=== PATIENT | female | born 1965 | race Caucasian/White ===

== ENCOUNTER → 2021-01-07 09:13 | Outpatient (CLI) | payer BC, SELFPAY ==
--- NOTE | ~2021-01-07 | US_ITS ---
US abdomen complete EXAMINATION: US Abdomen Complete INDICATION: Generalized abdominal pain PROCEDURE: Realtime High Resolution abdomen ultrasound. COMPARISON: No prior studies for comparison FINDINGS: Gallbladder within normal limits. No gallstones, pericholecystic fluid, gallbladder wall t hickening or biliary dilatation. Common bile duct measures 3.6 mm. There is fatty infiltration of the liver cyst. There are multiple liver cysts, largest measuring 2.4 cm. Pancreas within normal limits. Pancreatic tail is obscured by bowel gas. Spleen is enlarged ursula suring 13.9 cm. Renal echotexture is within normal limits bilaterally without hydronephrosis, contour deforming mass or renal stone. Right kidney measures 11.4 cm. Left kidney measures 10.7 cm. Visualized aspects of the aorta is within normal limits. The IVC is not visualized. Portal vein is pa tent. No sonographic Patel's sign indicated by the technologist. IMPRESSION: 1: Fatty infiltration of the liver with multiple liver cysts, largest measuring 2.4 cm. 2: Splenomegaly. Reviewed, dictated and finalized at location B. K AND WATCH HANDS DIPPER
== END ==
PROVIDERS: PCP Family Medicine; Visit Provider Nurse Practitioner Family
DX: R10.9 Unspecified abdominal pain (principal); K76.0 Fatty (change of) liver, not elsewhere classified; R16.1 Splenomegaly, not elsewhere classified
CPT/HCPCS: 76700

== ENCOUNTER → 2021-01-21 13:29 | Outpatient (CLI) | payer BC, SELFPAY ==
--- NOTE | ~2021-01-21 | MM_ITS ---
EXAMINATION: MM screening usha BI w chapo HISTORY: Screening mammogram TECHNIQUE: Craniocaudal and mediolateral oblique 3-D tomosynthesis images were obtained and synthetic 2-D images were generated. CAD analysis was submitted and interpreted. COMPARISON: 11/07/2017, 02/13/2015 bilateral digital screening mammogram examinations BREAST PARENCHYMAL COMPOSITION: There are scattered areas of fibroglandular density. FINDINGS: There is no evidence of suspicious mass, calcification, or architectural distortion to sugg est malignancy in either breast. There has been no suspicious interval change. IMPRESSION: 1. No mammographic evidence of malignancy. 2. Recommend routine screening mammography in one year. BI-RADS Category 1: Negative Reviewed, dictated and finalized at location A. ER AND POLISHER
--- NOTE | ~2021-01-21 | DEXA_ITS ---
Bone Density Report Name: Viktoriya Crane Age: 55 Sex: Female Ethnicity: White Date of : 1965 Indication: postmenopausal; screening for osteoporosis; hysterectomy; Referring Provider: BENSON LIGHT Study: Bone densitometry was performed. Exam Date: January 21, 2021 Accession number: [id number] Bone Density: Region BMD T-score Z-score Classification AP Spine (L3, L4) 1.269 1.5 2.8 Normal Femoral Neck (Left) 0.809 -0.4 0.8 Normal Total Hip (Left) 1.103 1.3 2.1 Normal Femoral Neck (Right) 0.845 0.0 1.1 Normal Total Hip (Right) 1.074 1.1 1.8 Normal Total Hip Mean 1.089 1.2 2.0 Normal World Health Organization criteria for BMD impression classify patients as: Normal (T-score at or above -1.0), Osteopenia (T-score between -1.0 and -2.5), or Osteoporosis (T-score at or below -2.5). 10-year Fracture Risk: FRAX not reported because: All T-scores for Spine Total, Hip Total, Femoral Neck at or above -1.0 Previous Exams: Region Exam Age BMD T-score BMD Change BMD Change Date g/cm2 vs Baseline vs Previous AP Spine(L3, L4) 01/21/2021 55 1.269 1.5 0.071* 0.071* 10/31/2018 53 1.198 0.9 Total Hip(Left) 01/21/2021 55 1.103 1.3 0.047* 0.047* 10/31/2018 53 1.056 0.9 Total Hip(Right) 01/21/2021 55 1.074 1.1 -0.011 -0.011 10/31/2018 53 1.085 1.2 *Denotes significance at 95% confidence level, LSC for AP Spine = 0.022 g/cm2, LSC for Total Hip = 0.027 g/cm2 Clinical Information Provided by Patient: Has used the following medications: Vitamin D Has the following medical conditions: Hysterectomy Patient maximum height was 65.5 Menopause Age: 49 No regular weight bearing exercise Drinks caffeinated beverages Onset of menses at age 8 Number of children 3 Missed period for more than 6 months in a row Impression: The patient has normal bone mass. No significant bone loss was observed. Discussion: BONE DENSITY IS ABOVE THE MINIMUM DESIRABLE LEVEL AT ALL SKELETAL SITES TESTED. This patient?s bone mineral density is above the minimum desirable level (T-score -1.0 or better) at all sites measured. The patient should follow a healthful lifestyle (good nutrition with adequate calcium and vitamin D, and appropriate weight-bearing exercise). Follow-Up: Consider repeating this study in 5 years or sooner if there is some new clinical indication. Reported by: [facility] on 01/21/2021
== END ==
PROVIDERS: PCP Family Medicine; Visit Provider Obstetrics & Gynecology
DX: Z12.31 Encounter for screening mammogram for malignant neoplasm of breast (principal); Z13.820 Encounter for screening for osteoporosis; Z78.0 Asymptomatic menopausal state
CPT/HCPCS: 77063; 77067; 77080

== ENCOUNTER 2021-01-29 08:48 | Outpatient (CLI) | payer BC, SELFPAY | END 2021-01-29 08:49 | disposition home or self-care (01) | LOC: ANHCOVIDVC 08:48 | PROVIDERS: PCP Family Medicine | DX: Z23 Encounter for immunization (principal) | CPT/HCPCS: 0001A; 91300 ==

== ENCOUNTER → 2021-02-04 07:49 | Outpatient (CLI) | payer OTHER, SELFPAY ==
--- NOTE | ~2021-02-04 | US_ITS ---
EXAMINATION: US abdomen complete EXAM DATE: 02/04/2021 08:19 INDICATION: Splenomegaly. TECHNIQUE: Multiple grayscale and Doppler images of the complete abdomen were obtained (by a technolo gist who performed the scan) and subsequently reviewed. Comparison is made to prior examination from 01/07/2021. FINDINGS: The abdominal aorta is normal in caliber. Visualized portion IVC is patent. The pancreatic head a nd body are normal in appearance. The pancreatic tail is not visualized. There is echogenic liver parenchyma, hepatic steatosis. Several anechoic structures consistent with liver cysts identified measuring up to 3.4 cm There is no evidence of intrahepatic biliary duct dila tion. Portal venous flow was seen in the hepatopedal, normal direction and has normal Doppler wavefo rm. Common bile duct measures 3 mm, which is normal. The gallbladder wall is normal in thickness, with ex pected amount of distention. No sonographic evidence of pericholecystic fluid. There is no cholelit hiases. Technologist performing exam reports patient did not demonstrate sonographic Patel's sign. Please note that this sign is less reliable in patients who have received pain medication. Right kidney: There is normal contour and echogenicity. It measures 10.4 x 4.3 x 4.8 centimeters. There are no focal renal lesions identified. There is no hydronephrosis. Left kidney: There is normal contour and echogenicity. It measures 12.2 x 5.3 x 5.4 centimeters. T here are no focal renal lesions identified. There is no hydronephrosis. The spleen measures 14.6 centimeters, mildly enlarged in greatest dimension. Thickness appears within normal limits. Maximal dimension obtained on prior study was 13.9 cm. IMPRESSION: 1. Borderline splenomegaly. 2. Hepatic steatosis. Reviewed, dictated and finalized at location B. STYLE CONSULTANT
== END ==
PROVIDERS: PCP Nurse Practitioner Family; Visit Provider Nurse Practitioner Family
DX: R16.1 Splenomegaly, not elsewhere classified (principal); K76.0 Fatty (change of) liver, not elsewhere classified
CPT/HCPCS: 76700

== ENCOUNTER 2021-02-19 08:47 | Outpatient (CLI) | payer OTHER, BC, SELFPAY | END 2021-02-19 08:48 | disposition home or self-care (01) | LOC: ANHCOVIDVC 08:48 | PROVIDERS: PCP Nurse Practitioner Family | DX: Z23 Encounter for immunization (principal) | CPT/HCPCS: 0002A; 91300 ==

== ENCOUNTER → 2021-05-15 08:55 | Outpatient (CLI) | payer OTHER, SELFPAY ==
--- NOTE | ~2021-05-15 | US_ITS ---
US abdomen complete DATE: 05/15/2021 09:40 INDICATION: Splenomegaly TECHNIQUE: Real-time imaging and Doppler analysis of the abdomen COMPARISON: 02/04/2021 complete abdominal ultrasound examination FINDINGS: Hepatic steatosis. Multiple hepatic cysts. Normal hepatopedal portal venous flow direction The pancreatic tail is obscured. The pancreas otherwise appears unremarkable. No gallstones, gallbladder wall thickening or abnormal pericholecystic fluid collection. Negative son ographic Patel's sign. Common bile duct measures 3 mm, normal. Right kidney measures 11.4 cm length, left kidney 11.7 cm. No renal mass lesion or hydronephrosis. The measures approximately 15 cm length. Normal caliber of the abdominal aorta. The inferior vena cava is unremarkable. IMPRESSION: Hepatic steatosis Hepatic cysts Splenomegaly Reviewed, dictated and finalized at Location A. Reviewed, dictated and finalized at location A.
== END ==
PROVIDERS: PCP Family Medicine; Visit Provider Nurse Practitioner Family
DX: R16.1 Splenomegaly, not elsewhere classified (principal); K76.0 Fatty (change of) liver, not elsewhere classified; K76.89 Other specified diseases of liver
CPT/HCPCS: 76700

== ENCOUNTER → 2023-01-19 14:43 | Outpatient (CLI) | payer BC, SELFPAY ==
--- NOTE | ~2023-01-19 | MM_ITS ---
EXAMINATION: MM screening usha BI w chapo HISTORY: Screening mammogram TECHNIQUE: Craniocaudal and mediolateral oblique 3-D tomosynthesis images were obtained and synthetic 2-D images were generated. CAD analysis was submitted and interpreted. COMPARISON: January 21, 2021, November 07, 2017, February 13, 2015 bilateral screening mammogram examin ations BREAST PARENCHYMAL COMPOSITION: There are scattered areas of fibroglandular density. FINDINGS: There is no evidence of suspicious mass, calcification, or architectural distortion to sugg est malignancy in either breast. There has been no suspicious interval change. IMPRESSION: 1. No mammographic evidence of malignancy. 2. Recommend routine screening mammography in one year. BI-RADS Category 1: Negative Reviewed, dictated and finalized at location A. ONAL CARER
== END ==
PROVIDERS: PCP Family Medicine; Visit Provider Obstetrics & Gynecology
DX: Z12.31 Encounter for screening mammogram for malignant neoplasm of breast (principal)
CPT/HCPCS: 77063; 77067

== ENCOUNTER 2024-10-16 13:14 | Outpatient (CLI) | payer BC, SELFPAY ==
--- NOTE | ~2024-10-16 | XR_ITS ---
XR elbow LT 2V Ordering provider: Radha Jack APRN History: . M25.512 - Pain in left shoulder . Comparison: None. FINDINGS: BONES: No acute fracture or dislocation. JOINT SPACES: Normal. SOFT TISSUES: Normal. No definite joint effusion. IMPRESSION: No acute osseous abnormality left elbow. Reviewed, dictated and finalized at location A. ILE PROC TECH
--- NOTE | ~2024-10-16 | XR_ITS ---
XR shoulder LT min 2V Ordering provider: Radha Jack APRN History: . M25.512 - Pain in left shoulder . Comparison: None. FINDINGS: BONES: No acute fracture or dislocation. JOINT SPACES: The acromioclavicular joint is normal. The glenohumeral joint is normal. SOFT TISSUES: Normal. IMPRESSION: No acute osseous abnormality left shoulder. Reviewed, dictated and finalized at location A. RVISOR DRY CLEANING
== END 2024-10-16 13:15 | disposition home or self-care (01) ==
LOC: MICIMG 13:16
PROVIDERS: PCP Family Medicine; Visit Provider Nurse Practitioner Adult Health
DX: M25.512 Pain in left shoulder (principal); M25.522 Pain in left elbow
CPT/HCPCS: 73030; 73070

== ENCOUNTER 2024-11-24 09:29 | Outpatient (CLI) | payer BC, SELFPAY ==
--- NOTE | ~2024-11-24 | MR_ITS ---
MRI of the left shoulder Technique: Axial proton-density fat-sat images, coronal proton density fat-sat and T2 fat-sat images, and sagittal T1-weighted and T2 fat-sat images were acquired. Clinical History: Injury Findings: There is mild AC joint degenerative change. Coracoclavicular, coracoacromial, and coracohum eral ligaments are intact. Supraspinatus and infraspinatus tendons are intact, with minimal tendinosis. No partial or full-thick ness tear. Subscapularis tendon is intact with mild to moderate tendinosis. Tendon of long head of th e biceps is intact. There is probable anteroinferior labral tear and possible focal osseous Bankart lesion. Inferior glenohumeral ligament is intact. There is moderate glenohumeral joint effusion. There is min imal fluid in the subacromial/subdeltoid bursa. No muscle atrophy or edema. Impression: Probable anteroinferior labral tear and suspected focal osseous Bankart lesion, consistent with seque la of prior anteroinferior shoulder dislocation. Consider CT to better evaluate bony morphology of th e anterior inferior glenoid. Moderate glenohumeral joint effusion. Reviewed, dictated and finalized at [facility]. HT LOSS CONSULTANT Impression: Probable anteroinferior labral tear and suspected focal osseous Bankart lesion, consistent with sequela of prior anteroinferior shoulder dislocation. Consider CT to better evaluate bony morphology of the anterior inferior glenoid. Moderate glenohumeral joint effusion.
== END 2024-11-24 09:30 | disposition home or self-care (01) ==
PROVIDERS: PCP Family Medicine; Visit Provider Nurse Practitioner Adult Health
DX: M25.412 Effusion, left shoulder (principal)
CPT/HCPCS: 73221

== ENCOUNTER 2025-03-26 10:14 | Outpatient (CLI) | payer OTHER, SELFPAY ==
--- NOTE | ~2025-03-26 | XR_ITS ---
3 VIEWS LUMBAR SPINE Ordering provider: Radha Jack APRN History: . M54.10 - Radiculopathy, site unspecified . Comparison: None. FINDINGS: VERTEBRAL BODIES: No visible fracture or subluxation. Degenerative changes of the spine. DISK SPACES: Narrowing of the disc L1-L2 and L5-S1. Facet joint disease at the level of L4-L5 and L5- S1. SOFT TISSUES: Loss of lordosis which may indicate muscle spasm. Otherwise, Normal. IMPRESSION: No acute osseous abnormality lumbar spine. Multilevel degenerative disc disease. Reviewed, dictated and finalized at location A.
--- OUTSIDE RECORDS SUMMARY | 2025-03-26 11:25 | XMS_ITS | Referral Summary ---
Author Organization [facility] Address [address] [place] [address] Care Team Providers Care Pediatric Immunologist Name Role Phone Harris Appiah MD Primary Care Provider [phone] Kingsley Thomas MD Unavailable [phone] Dragan Payne MD Unavailable [phone] Encounters Date Type Department Care Team Description 01/08/2025 8:00 AM KENNEL WORKER Office Visit [facility] Orthopedics and Sports Medicine [facility] [address] [place] [phone] Dillon Pineda MD Chronic left shoulder pain (Primary Dx) 12/26/2024 Telephone [facility] [address] [facility] 12[address] [place] [address] [place] [address] Eve Hall RN from Last 3 Months Allergies No known active allergies Medications sertraline (ZOLOFT) 100 mg tablet Take 2 tablets (200 mg total) by mouth daily 1 06/29/20 19 Active atorvastatin (LIPITOR) 40 mg tabletIndications :hyperlipidemia Take 1 tablet (40 mg total) by mouth nightly Active cholecalciferol (VITAMIN D-3) 5,000 unit tabletIndications :Vitamin D Deficiency Take 1 tablet (5,000 Units total) by mouth every morning Active MULTIVITAMIN ORAL Take 1 tablet/chew tab by mouth every morning Active pseudoephedrine (SUDAFED) 30 mg tabletIndications :Nasal Congestion Take 1 tablet (30 mg total) by mouth every 4 (four) hours as needed for congestion Active ibuprofen (ADVIL,MOTRIN) 600 mg tabletIndications :Pain Take 1 tablet (600 mg total) by mouth every 6 (six) hours 45 tablet 1 08/23/20 19 Active metFORMIN (GLUCOPHAGE) 500 mg tablet Take 1 tablet (500 mg total) by mouth 2 (two) times a day with meals Active vitamin B complex/folic acid (B COMPLEX 100 ORAL) Take by mouth Active guaifenesin/pseud oephedrne HCl (MUCINEX D ORAL) Take by mouth Active flaxseed oiL oil 720 mg daily Pt takes 4 daily Active omeprazole OTC (PriLOSEC OTC) 20 mg EC tablet Take 1 tablet (20 mg total) by mouth daily Active Xhance 93 mcg/actuation aerosol breath activated 2 SPRAYS IN EACH NOSTRIL NASALLY TWICE A DAY 12/03/19 25 Active levomefolate/B6/B 12/algal oil (METANX, ALGAL OIL, ORAL) 03/06/20 24 Active meloxicam (MOBIC) 7.5 mg tablet Take 1 tablet (7.5 mg total) by mouth daily 10/16/20 24 Active fexofenadine (MARILY) 60 mg tablet Take 1 tablet (60 mg total) by mouth daily Active ondansetron ODT (ZOFRAN-ODT) 4 mg disintegrating tabletIndications :Type 2 diabetes mellitus without complication, without long-term current use of insulin (HCC) Take 1 tablet (4 mg total) by mouth every 4 (four) hours as needed for nausea or vomiting 20 tablet 12/13/19 25 Active meloxicam (MOBIC) 15 mg tabletIndications :Chronic left shoulder pain Take 1 tablet (15 mg total) by mouth daily 30 tablet 3 01/08/20 25 2024 Active semaglutide (Rybelsus) 14 mg tabletIndications :type 2 diabetes mellitus Take 1 tablet (14 mg total) by mouth daily 30 tablet 5 02/27/20 25 Active semaglutide (Rybelsus) 7 mg tabletIndications :type 2 diabetes mellitus Take 1 tablet (7 mg total) by mouth daily for 28 days Start after completing 4 weeks of 3 mg daily 28 tablet 01/30/20 25 2024 Discontinued Active Problems Problem Noted Date Diagnosed Date NAFLD (nonalcoholic fatty liver disease) 022 Type 2 diabetes mellitus wit hout complication, without long-term current use of insulin 04/08/2022 Hypertriglyceridemia 04/08/2022 Endometrial cancer 07/23/2019 Overview (07/23/2019): Added automatically from request for surgery [id number] Sleep apnea in adult 07/23/2019 Overview (07/23/2019): Added automatically from request for surgery [id number] Class 3 severe obesity due t o excess calories with serious comorbidity and body mass index (BMI) of 45.0 to 49.9 in adult 07/23/2019 Overview (07/23/2019): Added automatically from request for surgery [id number] Chronic infection of sinus 10/28/2015 Chronic non-infective otitis externa 10/28/2015 Allergic rhinitis due to house dust mite 015 Allergic rhinitis due to mold 09/30/2015 Stopped smoking 09/30/2015 Hay fever 09/16/2015 Resolved Problems Problem Noted Date Diagnosed Date Resolved Date BMI 45.0-49.9, adult 04/08/2022 024 Social History Tobacco Use Types Packs/Day Years Used Date Smoking Tobacco: Former Cigarettes Q uit: 2013 Passive Smoke Exposure: Past Smokeless Tobacco: Never Tobacco Cessation:Counseling Given: Not Answered Alcohol Use Standard Drinks/Week Comments Yes 0 (1 standard drink = 0.6 oz pur e alcohol) very little/social AUDIT-C Answer Date Recorded Q1: How often do you have a drink containing alc ohol? 2-4 times a month 01/16/2024 Average Number of Drinks Not on file 024 Frequency of Binge Drinking Not on file 12/29 Personal Safety Answer Date Recorded Have you ever been in or are you currently in a harmful physical or emotional relationship or is someone making you feel afraid or unsafe? Denies 01/16/2024 Comments No Sex and Gender Information Value Date Recorded Sex Assigned at Not on file Legal Sex Female 5:18 AM KENNEL WORKER Gender Identity Female 04/12/2022 3:47 PM CDT Sexual Orientation Not on file Last Filed Vital Signs Vital Sign Reading Time Taken Comments Blood Pressure 136/84 12/13/2024 9:50 AM KENNEL WORKER Pulse 79 12/13/2024 9:50 AM KENNEL WORKER Temperature 36.3 C (97.4 F) 12/13/2024 9:50 AM KENNEL WORKER Respiratory Rate 17 01/16/2024 2:24 PM KENNEL WORKER Oxygen Saturation 94% 12/13/2024 9:50 AM KENNEL WORKER Inhaled Oxygen Concentration - - Weight 123.8 kg (273 lb) 12/13/2024 9:50 AM KENNEL WORKER Height 165.1 cm (5' 5 ) 12/13/2024 9:50 AM KENNEL WORKER Body Mass Index 45.43 12/13/2024 9:50 AM KENNEL WORKER Plan of Treatment Not on file Medical Devices Implanted Type Area Supervisor Calibration Device Identifier Shelf Expiration Date Model / Serial / Lot Knee Replacement Knee Procedures Procedure Name Priority Date/Time Associated Diagnosis Comments EGFR Routine 12/13/2024 11:29 AM KENNEL WORKER Type 2 diabetes mellitus without complication, without long-term current use of insulin (HCC) HEMOGLOBIN A1C Routine 12/13/2024 11:29 AM KENNEL WORKER Type 2 diabetes mellitus without complication, without long-term current use of insulin (HCC) LIPID PANEL Routine 12/13/2024 11:29 AM KENNEL WORKER Type 2 diabetes mellitus without complication, without long-term current use of insulin (HCC) HEPATITIS C ANTIBODY Routine 04/08/2022 10:53 AM CDT Hepatic steatosis from Last 3 Months or Most Recently Relevant to Health Maintenance Results * eGFR (12/13/2024 11:29 AM KENNEL WORKER) eGFR 87 >=60 mL/min/1. 73 m2 Comment: Interpretive Data Reference Interval Normal >/= 90 mL/min/1.73m2 Mildly decreased* 60 - 89 mL/min/1.73m2 Mildly to moderately decreased 45 - 59 mL/min/1.73m2 Moderately to severely decreased 30 - 44 mL/min/1.73m2 Severely decreased 15 - 29 mL/min/1.73m2 Kidney Failure < 15 mL/min/1.73m2 *Relative to young adult level Estimated glomerular filtration rate is determined by the 2020 CKD-EPI equation recommended by the National Kidney Foundation (A Unifying Approach to GFR Estimation: Recommendations of the NKF-ASK Task Force on Reassessing the Inclusion of Race in Diagnosing Kidney Disease, JASN 2020). The CKD-EPI equation should not be used for patients with unstable renal function and has not been validated in children and those over 70. Current interpretive data was last reviewed 2021. Blood 12/13/2024 11:2 9 AM KENNEL WORKER 12/13/2024 2:14 PM KENNEL WORKER Zackary King MD LAB BLOOD ORDERABLES Fin al Result Performing Organization Address [facility] [address] [facility] de Phone Number [facility] [place] [address] * (ABNORMAL) Hemoglobin A1c (12/13/2024 11:29 AM KENNEL WORKER) Hgb A1C 6.3(H) 4.0 - 5.6 % Estimated Average Glucose 134 mg/dL [facility] Comment: The ADA recommends reporting an estimated Average Glucose (eAG) with all Hemoglobin A1c results using the equation derived from a study of 507 normal and diabetic adults. Minority populations were underrepresented and children were not included. (Diabetes Care 2020; 43(S1): S66-S76). The eAG is not equivalent to a fasting glucose. Blood 12/13/2024 11:2 9 AM KENNEL WORKER 12/13/2024 1:50 PM KENNEL WORKER Zackary King MD LAB BLOOD ORDERABLES Fin al Result Performing Organization Address [facility] [address] [facility] de Phone Number [facility] [place] [address] * (ABNORMAL) Lipid panel (12/13/2024 11:29 AM KENNEL WORKER) Cholesterol 161 30 - 199 mg/dL Comment: Interpretive Data Ages < or = 19 years Acceptable: <170 mg/dL Borderline high: 170-199 mg/dL High: >or= 200 mg/dL Ages > or = 20 years Desirable: <200 mg/dL Borderline high: 200-239 mg/dL High: >or= 240 mg/dL Literature References: 1. Expert Panel on Integrated Guidelines for Cardiovascular Health and Risk Reduction in Children and Adolescents. Pediatrics 2011;128:S213 2. NCEP Expert Panel. Circulation 2004;110:227 Current Interpretive Data was last revised on 2018. Triglycerides 151(H) <=149 mg/dL [facility] Comment: Interpretive Data Ages < or = 9 years Acceptable: <75 mg/dL Borderline high: 75-99 mg/dL High: >or= 100 mg/dL Ages 10 to 20 years Acceptable: <90 mg/dL Borderline high: 90-129 mg/dL High: >or= 130 mg/dL Ages > or = 20 years Desirable: <150 mg/dL Borderline high: 150-199 mg/dL High: 200-499 mg/dL Very high: >or= 499 mg/dL Literature References: 1. Expert Panel on Integrated Guidelines for Cardiovascular Health and Risk Reduction in Children and Adolescents. Pediatrics 2011;128:S213 2. NCEP Expert Panel. Circulation 2004;110:227 Current Interpretive Data was last revised on 2018. HDL 42 >=40 mg/dL [facility] Comment: Interpretive Data Ages < or = 19 years Acceptable: >45 mg/dL Borderline low: 40-45 mg/dL Low: <40 mg/dL Ages > or = 20 years Desirable: >or= 60 mg/dL Low: <40 mg/dL Literature References: 1. Expert Panel on Integrated Guidelines for Cardiovascular Health and Risk Reduction in Children and Adolescents. Pediatrics 2011;128:S213 2. NCEP Expert Panel. Circulation 2004;110:227 Current Interpretive Data was last revised on 2018. LDL, calculated 92 <=129 mg/dL [facility] Comment: Interpretive Data Ages < or = 19 years Acceptable: <110 mg/dL Borderline high: 110-129 mg/dL High: >or= 130 mg/dL Ages > or = 20 years Optimal: <100 mg/dL Near optimal: 100-129 mg/dL Borderline high: 130-159 mg/dL High: >160 mg/dL Calculated using the Mccurdy LDL-C estimating equation. This equation was implemented on 2024. Prior to this date LDL-C was estimated using the Friedewald equation. Literature References: 1. Expert Panel on Integrated Guidelines for Cardiovascular Health and Risk Reduction in Children and Adolescents. Pediatrics 2011;128:S213 2. NCEP Expert Panel. Circulation 2004;110:227 3. Kaz Elizabeth et al. JERI Cardiol. 2019March 27;5(5):540-548. doi: 10.1001/jamacardio.2020.0013 Current Interpretive Data was last revised on 2024. Non-HDL Cholesterol 119 mg/dL [facility] Comment: Interpretive Data Ages < or = 19 years Acceptable: <120 mg/dL Borderline high: 120-144 mg/dL High: >145 mg/dL Ages > or = 20 years When triglycerides are >200 mg/dL, Non-HDL cholesterol is a secondary target of therapy with treatment goals that are 30 mg/dL greater than the LDL cholesterol target. Literature References: 1. Expert Panel on Integrated Guidelines for Cardiovascular Health and Risk Reduction in Children and Adolescents. Pediatrics 2011;128:S213 2. NCEP Expert Panel. Circulation 2004;110:227 Current Interpretive Data was last revised on 2018. Chol/HDL ratio 4 [facility] Blood 12/13/2024 11:2 9 AM KENNEL WORKER 12/13/2024 1:53 PM KENNEL WORKER Zackary King MD LAB BLOOD ORDERABLES Fin al Result [facility] Department [place] [address] * Hepatitis C antibody (04/08/2022 10:53 AM CDT) Hep C Ab Nonreactive Nonreactive [facility] Comment:Antibodies to HCV no t detected. Does NOT exclude the possibility of recent exposure to HCV. Blood 04/08/2022 10:5 3 AM CDT 04/08/2022 1:41 PM CDT Zackary King MD LAB MICROBIOLOGY - GENER AL ORDERABLES Edited Result - Final [facility] Department [place] [address] from Last 3 Months or Most Recently Relevant to Health Maintenance Insurance [facility] [place] [employer] HMO Advance Directives For more information, please contact: [phone] * Full Code (Latest Code Status on File) Date Activated Date Inactivated Comments 01/16/2024 11:06 AM 01/16/2024 6:41 PM * Full Code Date Activated Date Inactivated Comments 08/22/2019 1:20 PM 08/23/2019 3:05 PM Care Teams Pediatric Immunologist Relationship Specialty Start Date End Date Harris Appiah MD PCP - General Family Medicine 07/09/19 Kingsley Thomas MD [address] [place] [id number] Referring Physician Obstetrics and Gynecology 07/09/19 Dragan Payen MD [address] [address] Consulting Physician Gynecologic Oncology 09/09/19
--- OUTSIDE RECORDS SUMMARY | 2025-03-26 11:25 | XMS_ITS | Clinical Summary ---
Author Organization [facility] Address [address] [place] [address] Care Team Providers Care Natural Resources Specialist Name Role Phone Harris Appiah MD Primary Care Provider [phone] Kingsley Thomas MD Unavailable [phone] Dragan Payne MD Unavailable [phone] Allergies No known active allergies Medications sertraline [...] (07/23/2019): Added automatically from request for surgery [id number] Sleep apnea in adult 07/23/2019 Overview (07/23/2019): Added automatically from request for surgery [id number] Class 3 severe obesity due t o excess calories with serious comorbidity and body mass index (BMI) of 45.0 to 49.9 in adult 07/23/2019 Overview (07/23/2019): Added automatically from request for surgery [id number] Chronic infection of sinus 10/28/2015 Chronic non-infective otitis externa 10/28/2015 Allergic rhinitis due to house dust mite 015 Allergic rhinitis due to mold 09/30/2015 Stopped smoking 09/30/2015 Hay fever 09/16/2015 Resolved Problems Problem Noted Date Diagnosed Date Resolved Date BMI 45.0-49.9, adult 04/08/2022 024 Encounters Date Type Department Care Team Description 01/08/2025 8:00 AM SERVICENOW ADMINISTRATOR DEVELOPER Office Visit [facility] Orthopedics and Sports Medicine [address] [place] [phone] Dillon Pineda MD Chronic left shoulder pain (Primary Dx) 12/26/2024 Telephone [facility] Gastroenterology [address] [place] [address] [place] [phone] Eve Hall RN from Last 3 Months Surgical History Surgery Date Site/Laterality Comments TONSILLECTOMY 11/27/1967 - 11/26/1968 APPENDECTOMY 11/27/1988 - 11/26/1989 OOPHORECTOMY 11/27/1993 - 11/26/1994 DILATION AND CURETTAGE, DIAG NOSTIC / THERAPEUTIC 11/27/1993 - 11/26/1994 SECTION 11/27/2009 - 11/26/2010 REPLACEMENT TOTAL KNEE 11/27/2015 - 11/26/2016 Right SINUS SURGERY 11/27/2018 - 11/26/2019 BILATERAL SALPINGOOPHORECTOMY 08/22/2019 Bilateral HYSTERECTOMY 11/27/2018 - 11/26/2019 COLONOSCOPY Medical History Medical History Date Comments High cholesterol Obstructive sleep apnea H/O hernia repair Type 2 diabetes mellitus (HCC) Non-alcoholic fatty liver disease GERD (gastroesophageal reflux disease) Family History Medical History Relation Name Comments Heart disease Father Stroke Father Breast cancer Mother Diabetes Other Family history of diabetes mellitus - (Added by TW Conv) Pancreatic cancer Paternal Grandmother Relation Name Status Comments Father Mother Other Paternal Grandmother Social History Tobacco Use Types Packs/Day Years [...] on file Legal Sex Female 5:18 AM SERVICENOW ADMINISTRATOR DEVELOPER Gender Identity Female 04/12/2022 3:47 PM CDT Sexual Orientation Not on file Obstetrics History Para Term AB IAB SAB Ectopic Multiple Livin g Live Births 3 3 3 3 3 Date Outcome GA Total Labor Labor/2nd/3rd Weight Sex Type Anes PTL Chelita A1 A5 Name Clin Term Term Term Last Filed Vital Signs Vital Sign Reading Time Taken Comments Blood Pressure 136/84 12/13/2024 9:50 AM SERVICENOW ADMINISTRATOR DEVELOPER Pulse 79 12/13/2024 9:50 AM SERVICENOW ADMINISTRATOR DEVELOPER Temperature 36.3 C (97.4 F) 12/13/2024 9:50 AM SERVICENOW ADMINISTRATOR DEVELOPER Respiratory Rate 17 01/16/2024 2:24 PM SERVICENOW ADMINISTRATOR DEVELOPER Oxygen Saturation 94% 12/13/2024 9:50 AM SERVICENOW ADMINISTRATOR DEVELOPER Inhaled Oxygen Concentration - - Weight 123.8 kg (273 lb) 12/13/2024 9:50 AM SERVICENOW ADMINISTRATOR DEVELOPER Height 165.1 cm (5' 5 ) 12/13/2024 9:50 AM SERVICENOW ADMINISTRATOR DEVELOPER Body Mass Index 45.43 12/13/2024 9:50 AM SERVICENOW ADMINISTRATOR DEVELOPER Plan of Treatment Health Maintenance Due Date Last Done Comments Albumin Creatinine Ratio, Urine 1965 Breast Cancer Screening-Mammogram 1965 Colon Cancer Screening-Colonoscopy 1965 Depression Screening 1965 Dilated Eye Exam 1965 Foot Exam 1965 Regular Well Visit/Exam 18-64 1982 Pneumococcal vaccine <65 (1 of 2 - PCV) 1983 Covid-19 Vaccine ( season) 2024 11/15/2021, 02/19/2021, 01/29/2021 Hemoglobin A1C 06/12/2025 12/13/2024, 11/27, 04/08/2022 Influenza Vaccine (Season Ended) 2025 09/02/20, 01/27/2020 Lipid Panel 12/13/2025 12/13/2024, 11/27, 04/08/2022 eGFR 12/13/2025 12/13/2024, 11/27, 04/08/2022 DTaP/Tdap/Td Vaccine (2 - Td or Tdap) 01/26/203012/2019 Zoster Vaccine Completed 11/03/2020, 09/02/2020 Hepatitis B Screening Completed 04/08/2022 Hepatitis C Screening Completed 04/08/2022 Medical Devices Implanted Type Area Rn Registry Device Identifier Shelf Expiration Date Model / Serial / Lot Knee Replacement Knee Procedures Procedure Name Priority Date/Time Associated Diagnosis Comments EGFR Routine 12/13/2024 11:29 AM SERVICENOW ADMINISTRATOR DEVELOPER Type 2 diabetes mellitus without complication, without long-term current use of insulin (HCC) HEMOGLOBIN A1C Routine 12/13/2024 11:29 AM SERVICENOW ADMINISTRATOR DEVELOPER Type 2 diabetes mellitus without complication, without long-term current use of insulin (HCC) LIPID PANEL Routine 12/13/2024 11:29 AM SERVICENOW ADMINISTRATOR DEVELOPER Type 2 diabetes mellitus without complication, without long-term current use of insulin (HCC) HEPATITIS C ANTIBODY Routine 04/08/2022 10:53 AM CDT Hepatic steatosis from Last 3 Months or Most Recently Relevant to Health Maintenance Results * eGFR (12/13/2024 11:29 AM SERVICENOW ADMINISTRATOR DEVELOPER) eGFR 87 >=60 mL/min/1. 73 m2 Comment: [...] reviewed 2021. Blood 12/13/2024 11:2 9 AM SERVICENOW ADMINISTRATOR DEVELOPER 12/13/2024 2:14 PM SERVICENOW ADMINISTRATOR DEVELOPER Zackary King MD LAB BLOOD ORDERABLES Fin al Result Performing Organization Address [facility] de Phone Number [facility] [place] [address] * (ABNORMAL) Hemoglobin A1c (12/13/2024 11:29 AM SERVICENOW ADMINISTRATOR DEVELOPER) Hgb A1C 6.3(H) 4.0 - 5.6 % Estimated Average Glucose 134 mg/dL [facility] Comment: The ADA recommends reporting an estimated Average Glucose (eAG) with all Hemoglobin A1c results using the equation derived from a study of 507 normal and diabetic adults. Minority populations were underrepresented and children were not included. (Diabetes Care 2020; 43(S1): S66-S76). The eAG is not equivalent to a fasting glucose. Blood 12/13/2024 11:2 9 AM SERVICENOW ADMINISTRATOR DEVELOPER 12/13/2024 1:50 PM SERVICENOW ADMINISTRATOR DEVELOPER Zackary King MD LAB BLOOD ORDERABLES Fin al Result Performing Organization Address [facility] Co de Phone Number [facility] [place] [address] * (ABNORMAL) Lipid panel (12/13/2024 11:29 AM SERVICENOW ADMINISTRATOR DEVELOPER) Cholesterol 161 30 - 199 mg/dL Comment: [...] revised on 2018. Triglycerides 151(H) <=149 mg/dL [facility] Comment: Interpretive Data Ages < or = [...] revised on 2018. HDL 42 >=40 mg/dL [facility] Comment: Interpretive Data Ages < or = [...] on 2018. LDL, calculated 92 <=129 mg/dL [facility] Comment: Interpretive Data Ages < or = 19 years Acceptable: <110 mg/dL Borderline high: 110-129 mg/dL High: >or= 130 mg/dL Ages > or = 20 years Optimal: <100 mg/dL Near optimal: 100-129 mg/dL Borderline high: 130-159 mg/dL High: >160 mg/dL Calculated using the Kaz LDL-C estimating equation. This equation was implemented on 2024. Prior to this date LDL-C was estimated using the Friedewald equation. Literature References: 1. Expert Panel on Integrated Guidelines for Cardiovascular Health and Risk Reduction in Children and Adolescents. Pediatrics 2011;128:S213 2. NCEP Expert Panel. Circulation 2004;110:227 3. Kaz Elizabeth et al. JERI Cardiol. 2020 March 27;5(5):540-548. doi: 10.1001/jamacardio.2020.0013 Current Interpretive Data was last revised on 2024. Non-HDL Cholesterol 119 mg/dL [facility] Comment: Interpretive Data Ages < or = [...] last revised on 2018. Chol/HDL ratio [address] [facility] Blood 12/13/2024 11:2 9 AM SERVICENOW ADMINISTRATOR DEVELOPER 12/13/2024 1:53 PM SERVICENOW ADMINISTRATOR DEVELOPER us Zackary King MD LAB BLOOD ORDERABLES Fin al Result [facility] Department [place] [address] * Hepatitis C antibody (04/08/2022 10:53 AM CDT) Hep C Ab Nonreactive Nonreactive [facility] Comment:Antibodies to HCV no t detected. Does NOT exclude the possibility of recent exposure to HCV. Blood 04/08/2022 10:5 3 AM CDT 04/08/2022 1:41 PM CDT Zackary King MD LAB MICROBIOLOGY - GENER AL ORDERABLES Edited Result - Final [facility] [place] [address] from Last 3 Months or Most Recently Relevant to Health Maintenance [facility] [place] [facility] Advance Directives For more information, please contact: [phone] * Full Code (Latest Code Status on File) Date Activated Date Inactivated Comments 01/16/2024 11:06 AM 01/16/2024 6:41 PM * Full Code Date Activated Date Inactivated Comments 08/22/2019 1:20 PM 08/23/2019 3:05 PM Care Teams Natural Resources Specialist Relationship Specialty Start Date End Date Harris Appiah MD PCP - General Family Medicine 07/09/19 Kingsley Thomas MD [address] [address] Referring Physician Obstetrics and Gynecology 07/09/19 Dragan Payne MD [address] [address] Consulting Physician Gynecologic Oncology 09/09/19
--- OUTSIDE RECORDS SUMMARY | 2025-03-26 11:25 | XMS_ITS ---
Author Organization [facility] Address [address] [place] [address] Care Team Providers Care Life Skills Coach Name Role Phone Harris Appiah MD Primary Care Provider [phone] Kingsley Thomas MD Unavailable [phone] Dragan Payne MD Unavailable [phone] Active Problems Problem Noted Date Diagnosed Date NAFLD (nonalcoholic fatty liver disease) 022 Type 2 diabetes mellitus wit hout complication, without long-term current use of insulin 04/08/2022 Hypertriglyceridemia 04/08/2022 Endometrial cancer 07/23/2019 Overview (07/23/2019): Added automatically from request for surgery [id number] Sleep apnea in adult 07/23/2019 Overview (07/23/2019): Added automatically from request for surgery [id number] Class 3 severe obesity due t o excess calories with serious comorbidity and body mass index (BMI) of 45.0 to 49.9 in adult 07/23/2019 Overview (07/23/2019): Added automatically from request for surgery [id number] Chronic infection of sinus 10/28/2015 Chronic non-infective otitis externa 10/28/2015 Allergic rhinitis due to house dust mite 015 Allergic rhinitis due to mold 09/30/2015 Stopped smoking 09/30/2015 Hay fever 09/16/2015 Current Treatment and Therapy Plans No current plan information found. Past Treatment and Therapy Plans No past plan information found. Treatment Summaries Endometrial cancer (HCC)* Images from the original note were not included. [id number] [place] [address] This Survivorship Care Plan is a cancer treatment summary and follow-up plan and is provided to youto keep with your health care records and to share with your primary care provider or any of your doctors and nurses. This summary is a brief record of major aspects of your cancer treatment not a detailed or comprehensive record of your care. You should review this with your cancer provider. Treatment Summary and Survivorship Care Plan for Gynecological Cancer General Information Patient name Viktoriya Baker (home) Date of 1965 Health Care Providers (Including Names, Institutions) Provider Name: Contact Information: Primary Care Physician Harris Appiah [phone] Referring OBGYN Kingsley Thomas MD [phone] Head Trimmer/Medical Oncologist Dragan Payne MD [phone] Genetic Counselor Other Providers Treatment Summary Cancer Diagnosis Information Diagnosis Endometrial cancer (CMS/HCC) Diagnosis date 07/04/2019 Staging information [id number] Family History of Cancer Cancer-related family history includes Breast cancer in her mother. Treatment Completed Surgery Surgery date 08/22/2019 Surgical procedure / location / findings Single incision hysterectomy- laparoscopic robotic assisted-abdominal salpingo-oophorectomy, Laparoscopic [place] Lymph node dissection, possible omentectomy Single incision Bilateral Salpingectomy, Left Oophorectomy Cystoscopy Lysis Of Adhesions Lymph node removal [place] nodes Radiation No Systemic Therapy (chemotherapy, hormonal therapy, other)-None Research Studies No available studies Persistent symptoms or side effects that have continued after finishing treatment: none noted Treatment Ongoing: No Genetic Testing Genetic/hereditary risk factors(s) or predisposing condition: Genetic Test Results Comments Not performed N/A None If you have genetic testing questions, please talk to your provider. Tell your doctor if there is a history of cancer in your family, or if another family member was diagnosed with cancer since your last visit for potential referral for genetic counseling. Examples may include: History of ovarian cancer in the patient or any 1st or 2nd degree relative In addition to LAPPER cancer, also have a history of breast cancer and have two or more 1st degree or 2nd degree relative diagnosed with breast cancer at any age. History of endometrial cancer in the patient along with any 1st or 2nd degree relative. If you have been diagnosed with a gynecologic cancer prior to age 50 History of ovarian cancer along with two or more 1st or 2nd degree relatives diagnosed with ovariancancer. If you have a BRCA 1 or 2 mutation. Follow-up Care Plan Your follow-up care plan is design to inform you and primary care providers regarding the recommended and required follow-up, cancer screening and routine health maintenance that is needed to maintain optimal health. Schedule of Clinical Visits Coordinating Provider When/How often Dr. Kingsley Arellano History and Physical every 6 months for 2 years then every 12 months there after Cancer Surveillance or other Recommended Tests Coordinating Provider Test How Often Possible late- and long-term effects that someone with this type of cancer and treatment may experience: Bowel problems (urgency, incontinence, change in consistency) Numbness/tingling Fatigue Memory/concentration difficulty Pelvic insufficiency fractures Urinary problems - urinary incontinence Sexual dysfunction - menopause, vaginal dryness, painful intercourse (use of vaginal dilator daily,up to 2 years is important after radiation therapy. The use of okci-jcr-ilbqyqg lubricants (Replens, Astroglide, [place] Jelly) or natural oils such as olive oil may lessen painful intercourse. Promising non-hormone treatments may include antidepressants (drugs that treat depression), dietary changes, acupuncture and exercise may help lessen symptoms). Please continue to see your primary care provider for all general health care recommended for a woman your age, including cancer screening tests. Any symptoms should be brought to the attention of your provider: Anything that represents a brand new symptom; Anything that represents a persistent symptom; Anything you are worried about that might be related to the cancer coming back Cancer survivors may experience issues with the areas listed below. If you have any concerns in these or other areas, please speak with your doctors or nurses to find out how you can get help with them. Anxiety and depression Emotional and mental health Fatigue Fertility Financial advice or assistance Insurance Memory or concentration loss Parenting Physical functioning School/work Sexual functioning Stopping smoking Weight changes Other A number of lifestyle/behaviors can affect your ongoing health, including the risk for the cancer coming back or developing another cancer. Discuss these recommendations with your doctor or nurse: Eat a healthy diet: focus on lean meats and proteins, more fruits, vegetables and whole grains and low in sugars and fats. Limit red meat and avoid processed meat. Maintain a healthy weight; avoid being overweight. Aim for a normal body mass index (BMI) of 18.5-24.9. Help learning to eat healthier, call the employment recruiter at: [facility] . Have an active lifestyle, strive for 30 minutes of moderate exercise 5 times a week and strength orresistance training at least twice a week. Use broad-spectrum (UVA+UVB) sunscreen with SPF 30 or greater, is water resistant, limit time spentin the sun (10 am-4pm), wear hat, wear UV protective clothing, wear sunglasses. Never use a tanningbed. Skin that was irradiated may be more sensitive over your lifetime. Do not smoke or chew tobacco; participate in a smoking cessation program. Limit alcohol intake, 1 drink per day for a woman and 2 drinks per day for a man. Resources you may be interested in: [facility] [place] [facility] [place] [facility] http://www.[facility]/ [facility] Information [facility] 1st floor of [facility] [phone]. Computer access, educational material, counseling services (FREE) Cancer Resources: www.cancer.net National Cancer [place]: http://www.cancer.gov/ Citizen [place] Disabilities Act: The U.S. Department of Justice provides information about the Americans with Disabilities Act (ADA). Toll free number 120.514. 0309 http://www.ada.gov/ Occupational Therapy at [facility]. Improve memory and thinking following chemotherapy. Improve your performance at home, work and in the community. or Toll free www.ot.[facility]/patients Managing your weight after a cancer diagnosis: http://www.cancer.net/sites/cancer.net/files/weight_after_cancer_diagnosis.pdf Foundation for Women???s Cancer: http://www.foundationforwomenscancer.org [facility] Department of OBGYN: http://www.obgyn.[facility]/content/418/hereditary_cancer_ risk_assessment_service.aspx National Coalition for Cancer Survivorship: http://www.canceradvocacy.org/ Citizen [place] Cancer Society Cancer Survivors Network: http://csn.cancer.org/ Obesity Action Coalition: www.obesityaction.org LIVE STRONG at the [employer] is a twelve-week, small group program designed to help adult cancer survivors become more physically active after cancer diagnosis: http://www.XOG.org/what-we-do/our-act ions/programs-partnerships/iybwztrobx-oi-ezd-ymca/tvykrexrox-hmfs-vckzvgfmq/ Plivoer: www.Socialbomb.H3 Polí[place]os.gov [place] Ovarian Cancer Awareness: committed to impacting ovarian cancer survivorship by promotingawareness of early warning signs and standards of care, funding ovarian cancer research, and supporting survivors. www.sloca.org Gynecological Oncology Support group: A wellness-focused support group for women and their significant others to share feelings and experiences. Current treatments and complementary therapies are discussed, and a physician is available to answer questions. www.[facility]/event-category/suppor t-groups Springboard Beyond Cancer: https://survivorship.cancer.gov/ an online tool for cancer survivors andcaregivers created by the [place] Cancer Society and the National Cancer [place]. It provides: Information on dealing with side effects from cancer and treatment Caregivers with support and resources Practical advice about talking to friends and family about cancer Questions to ask their health care team Help understanding their rights in the workplace Resolved Problems Problem Noted Date Diagnosed Date Resolved Date BMI 45.0-49.9, adult 04/08/2022 024
== END 2025-03-26 10:15 | disposition home or self-care (01) ==
PROVIDERS: PCP Family Medicine; Visit Provider Nurse Practitioner Adult Health
DX: M51.369 Other intervertebral disc degeneration, lumbar region without mention of lumbar back pain or lower extremity pain (principal); M51.379 Other intervertebral disc degeneration, lumbosacral region without mention of lumbar back pain or lower extremity pain
CPT/HCPCS: 72100

== ENCOUNTER 2025-06-13 00:15 | Day surgery (SDC) | payer OTHER, SELFPAY ==
[2025-06-02 13:38] VITALS: BMI 43.2
--- OUTSIDE RECORDS SUMMARY | 2025-06-13 00:18 | XMS_ITS ---
Author Organization [facility] Address [address] [place] [address] Care Team Providers Care Batch Dumper Name Role Phone Harris Appiah MD Primary Care Provider [phone] Kingsley Thomas MD Unavailable [phone] Dragan Payne MD Unavailable [phone] Active Problems Problem Noted Date Diagnosed Date NAFLD (nonalcoholic fatty liver disease) 022 Type 2 diabetes mellitus wit hout complication, without long-term current use of insulin 04/08/2022 Hypertriglyceridemia 04/08/2022 Endometrial cancer 07/23/2019 Overview (07/23/2019): Added automatically from request for surgery [id number] Sleep apnea in adult 07/23/2019 Overview (07/23/2019): Added automatically from request for surgery [id number] Class 3 severe obesity due t o excess calories with serious comorbidity and body mass index (BMI) of 45.0 to 49.9 in adult 07/23/2019 Overview (07/23/2019): Added automatically from request for surgery [id number] Chronic infection of sinus 10/28/2015 Chronic non-infective otitis externa 10/28/2015 Allergic rhinitis due to house dust mite 015 Allergic rhinitis due to mold 09/30/2015 Stopped smoking 09/30/2015 Hay fever 09/16/2015 Current Treatment and Therapy Plans No current plan information found. Past Treatment and Therapy Plans No past plan information found. Treatment Summaries Endometrial cancer (HCC)* Images from the original note were not included. [id number] [place] [address] This Survivorship Care Plan is a cancer [...] Contact Information: Primary Care Physician Harris Appiah [phone] Referring OBGYN Kingsley Thomas MD [phone] Substance Abuse Clinician/Medical Oncologist Dragan Payne MD [phone] Genetic Counselor Other Providers Treatment Summary Cancer Diagnosis Information Diagnosis Endometrial cancer (CMS/HCC) Diagnosis date 07/04/2019 Staging information [id number] Family History of Cancer Cancer-related family history includes Breast cancer in her mother. Treatment Completed Surgery Surgery date 08/22/2019 Surgical procedure / location / findings Single incision hysterectomy- laparoscopic robotic assisted-abdominal salpingo-oophorectomy, Laparoscopic [place] Lymph node dissection, possible omentectomy Single incision Bilateral Salpingectomy, Left Oophorectomy Cystoscopy Lysis Of Adhesions Lymph node removal [place] nodes Radiation No Systemic Therapy (chemotherapy, hormonal [...] or 2nd degree relative In addition to PRECIPITATOR OPERATOR cancer, also have a history of breast [...] important after radiation therapy. The use of xkrr-sed-zplbnol lubricants (Replens, Astroglide, [place] Jelly) or natural [...] Help learning to eat healthier, call the principal trainer at: [facility] . Have an active lifestyle, strive for [...] man. Resources you may be interested in: [facility] [place] [facility] http://www.[facility]/ [facility] & Cancer Information Center 1st floor of [facility] [phone]. Computer access, educational material, counseling services (FREE) Cancer Resources: www.cancer.net National Cancer [place]: http://www.cancer.gov/ [place] Disabilities Act: The U.S. Department of Justice provides information about the Americans with Disabilities Act (ADA). Toll free number http://www.ada.gov/ Occupational Therapy at [facility]. Improve memory and thinking following chemotherapy. Improve your performance at home, work and in the community. or Toll free www.ot.[facility]/patients Managing your weight after a cancer diagnosis: http://www.cancer.net/sites/cancer.net/files/weight_after_cancer_diagnosis.pdf Foundation for Women???s Cancer: http://www.foundationforwomenscancer.org [facility] Department of OBGYN: http://www.obgyn.[facility]/content/418/hereditary_cancer_ risk_assessment_service.aspx National Coalition for Cancer Survivorship: http://www.canceradvocacy.org/ [place] Cancer Society Cancer Survivors Network: http://csn.cancer.org/ Obesity Action Coalition: www.obesityaction.org LIVE STRONG at the [employer] is a twelve-week, small group program designed to help adult cancer survivors become more physically active after cancer diagnosis: http://www.[employer].org/what-we-do/our-act ions/programs-partnerships/rxfquvrprn-hf-ujw-ymca/vvjnppbffy-ldzh-rymdwnshe/ [employer]: www.[employer].gov [place] Ovarian Cancer Awareness: committed to impacting ovarian cancer survivorship by promotingawareness of early warning signs and standards of care, funding ovarian cancer research, and supporting survivors. www.sloca.org Gynecological Oncology Support group: A wellness-focused support group for women and their significant others to share feelings and experiences. Current treatments and complementary therapies are discussed, and a physician is available to answer questions. www.[facility]/event-category/suppor t-groups Springboard Beyond Cancer: https://survivorship.cancer.gov/ an online tool for cancer survivors andcaregivers created by the [place] Cancer Society and the National Cancer [place]. It provides: Information on dealing with side effects from cancer and treatment Caregivers with support and resources Practical advice about talking to friends and family about cancer Questions to ask their health care team Help understanding their rights in the workplace Resolved Problems Problem Noted Date Diagnosed Date Resolved Date BMI 45.0-49.9, adult 04/08/2022 024
--- OUTSIDE RECORDS SUMMARY | 2025-06-13 00:18 | XMS_ITS | Referral Summary ---
Author Organization [facility] Address [address] [place] [address] Care Team Providers Care Heart Nurse Name Role Phone Harris Appiah MD Primary Care Provider Kingsley Thomas MD Unavailable [phone] Dragan Payne MD Unavailable [phone] Allergies No known active allergies Medications sertraline (ZOLOFT) 100 mg tablet Take 2 tablets (200 mg total) by mouth daily 1 9 Active atorvastatin (LIPITOR) 40 mg tabletIndications: hyperlipidemia Take 1 tablet (40 mg total) by mouth nightly Active cholecalciferol (VITAMIN D-3) 5,000 unit tabletIndications: Vitamin D Deficiency Take 1 tablet (5,000 Units total) by mouth every morning Active MULTIVITAMIN ORAL Take 1 tablet/chew tab by mouth every morning Active pseudoephedrine (SUDAFED) 30 mg tabletIndications: Nasal Congestion Take 1 tablet (30 mg total) by mouth every 4 (four) hours as needed for congestion Active ibuprofen (ADVIL,MOTRIN) 600 mg tabletIndications: Pain Take 1 tablet (600 mg total) by mouth every 6 (six) hours 45 tablet 1 9 Active metFORMIN (GLUCOPHAGE) 500 mg tablet Take 1 tablet (500 mg total) by mouth 2 (two) times a day with meals Active vitamin B complex/folic acid (B COMPLEX 100 ORAL) Take by mouth Active guaifenesin/pseudo ephedrne HCl (MUCINEX D ORAL) Take by mouth Active flaxseed oiL oil 720 mg daily Pt takes 4 daily Active omeprazole OTC (PriLOSEC OTC) 20 mg EC tablet Take 1 tablet (20 mg total) by mouth daily Active Xhance 93 mcg/actuation aerosol breath activated 2 SPRAYS IN EACH NOSTRIL NASALLY TWICE A DAY 5 Active levomefolate/B6/B1 2/algal oil (METANX, ALGAL OIL, ORAL) 4 Active meloxicam (MOBIC) 7.5 mg tablet Take 1 tablet (7.5 mg total) by mouth daily 4 Active fexofenadine (MARILY) 60 mg tablet Take 1 tablet (60 mg total) by mouth daily Active ondansetron ODT (ZOFRAN-ODT) 4 mg disintegrating tabletIndications: Type 2 diabetes mellitus without complication, without long-term current use of insulin (HCC) Take 1 tablet (4 mg total) by mouth every 4 (four) hours as needed for nausea or vomiting 20 tablet 5 Active meloxicam (MOBIC) 15 mg tabletIndications: Chronic left shoulder pain Take 1 tablet (15 mg total) by mouth daily 30 tablet 3 5 Active semaglutide (Rybelsus) 14 mg tabletIndications: type 2 diabetes mellitus Take 1 tablet (14 mg total) by mouth daily 30 tablet 5 5 Active Active Problems Problem Noted Date Diagnosed Date NAFLD (nonalcoholic fatty liver disease) 022 Type 2 diabetes mellitus wit hout complication, without long-term current use of insulin 04/08/2022 Hypertriglyceridemia 04/08/2022 Endometrial cancer 07/23/2019 Overview (07/23/2019): Added automatically from request for surgery [id number] Sleep apnea in adult 07/23/2019 Overview (07/23/2019): Added automatically from request for surgery [id number] Class 3 severe obesity due t o excess calories with serious comorbidity and body mass index (BMI) of 45.0 to 49.9 in adult 07/23/2019 Overview (07/23/2019): Added automatically from request for surgery [id number] Chronic infection of sinus 10/28/2015 Chronic non-infective [...] on file Legal Sex Female 5:18 AM PASTRY COOK Gender Identity Female 04/12/2022 3:47 PM CDT Sexual Orientation Not on file Last Filed Vital Signs Vital Sign Reading Time Taken Comments Blood Pressure 136/84 12/13/2024 9:50 AM PASTRY COOK Pulse 79 12/13/2024 9:50 AM PASTRY COOK Temperature 36.3 C (97.4 F) 12/13/2024 9:50 AM PASTRY COOK Respiratory Rate 17 01/16/2024 2:24 PM PASTRY COOK Oxygen Saturation 94% 12/13/2024 9:50 AM PASTRY COOK Inhaled Oxygen Concentration - - Weight 123.8 kg (273 lb) 12/13/2024 9:50 AM PASTRY COOK Height 165.1 cm (5' 5) 12/13/2024 9:50 AM PASTRY COOK Body Mass Index 45.43 12/13/2024 9:50 AM PASTRY COOK Plan of Treatment Not on file Medical Devices Implanted Type Area Dipper And Baker Device Identifier Shelf Expiration Date Model / Serial / Lot Knee Replacement Knee Procedures Procedure Name Priority Date/Time Associated Diagnosis Comments EGFR Routine 12/13/2024 11:29 AM PASTRY COOK Type 2 diabetes mellitus without complication, without long-term current use of insulin (HCC) HEMOGLOBIN A1C Routine 12/13/2024 11:29 AM PASTRY COOK Type 2 diabetes mellitus without complication, without long-term current use of insulin (HCC) LIPID PANEL Routine 12/13/2024 11:29 AM PASTRY COOK Type 2 diabetes mellitus without complication, without long-term current use of insulin (HCC) HEPATITIS C ANTIBODY Routine 04/08/2022 10:53 AM CDT Hepatic steatosis from Last 3 Months or Most Recently Relevant to Health Maintenance Results * eGFR (12/13/2024 11:29 AM PASTRY COOK) eGFR 87 >=60 mL/min/1. 73 m2 Comment: [...] reviewed 2021. Blood 12/13/2024 11:2 9 AM PASTRY COOK 12/13/2024 2:14 PM PASTRY COOK us Zackary King MD LAB BLOOD ORDERABLES Fin al Result [facility] Department [place] [address] * (ABNORMAL) Hemoglobin A1c (12/13/2024 11:29 AM PASTRY COOK) Hgb A1C 6.3(H) 4.0 - 5.6 % Estimated Average Glucose 134 mg/dL [facility] Comment: The ADA recommends reporting an estimated Average Glucose (eAG) with all Hemoglobin A1c results using the equation derived from a study of 507 normal and diabetic adults. Minority populations were underrepresented and children were not included. (Diabetes Care 2020; 43(S1): S66-S76). The eAG is not equivalent to a fasting glucose. Blood 12/13/2024 11:2 9 AM PASTRY COOK 12/13/2024 1:50 PM PASTRY COOK Zackary King MD LAB BLOOD ORDERABLES Fin al Result [facility] Department [place] [address] * (ABNORMAL) Lipid panel (12/13/2024 11:29 AM PASTRY COOK) [facility] Cholesterol 161 30 - 199 mg/dL Comment: [...] revised on 2018. Triglycerides 151(H) <=149 mg/dL [facility] Comment: Interpretive Data Ages < or [...] on 2018. HDL 42 >=40 mg/dL [facility] Comment: Interpretive Data Ages < or [...] 2018. LDL, calculated 92 <=129 mg/dL [facility] Comment: Interpretive Data Ages < or [...] 2. NCEP Expert Panel. Circulation 2004;110:227 3. aKz Baez al. JERI Cardiol. 2020 March 27;5(5):540-548. doi: 10.1001/jamacardio.2020.0013 Current Interpretive Data was last revised on 2024. Non-HDL Cholesterol 119 mg/dL [facility] Comment: Interpretive Data Ages < or [...] last revised on 2018. Chol/HDL ratio 4 [facility] Blood 12/13/2024 11:2 9 AM PASTRY COOK 12/13/2024 1:53 PM PASTRY COOK Zackary King MD LAB BLOOD ORDERABLES Fin al Result Performing Organization Address [facility] de Phone Number [facility] Department [place] [employer] [place] [address] * Hepatitis C antibody (04/08/2022 10:53 AM CDT) Hep C Ab Nonreactive Nonreactive [facility] Comment:Antibodies to HCV no t detected. Does NOT exclude the possibility of recent exposure to HCV. Blood 04/08/2022 10:5 3 AM CDT 04/08/2022 1:41 PM CDT Zackary King MD LAB MICROBIOLOGY - GENER AL ORDERABLES Edited Result - Final Performing Organization Address [facility] de Phone Number [facility] [place] [place] [address] from Last 3 Months or Most Recently Relevant to Health Maintenance Insurance [facility] ACCESS [facility] Advance Directives For more information, please contact: [phone] * Full Code (Latest Code Status on File) Date Activated Date Inactivated Comments 01/16/2024 11:06 AM 01/16/2024 6:41 PM * Full Code Date Activated Date Inactivated Comments 08/22/2019 1:20 PM 08/23/2019 3:05 PM Care Teams Heart Nurse Relationship Specialty Start Date End Date Harris Appiah MD PCP - General Family Medicine 07/09/19 Kingsley Thomas MD [address] [address] Referring Physician Obstetrics and Gynecology 07/09/19 Dragan Payne MD [address] [address] Consulting Physician Gynecologic Oncology 09/09/19
--- OUTSIDE RECORDS SUMMARY | 2025-06-13 00:18 | XMS_ITS | Clinical Summary ---
Author Organization [facility] Address [address] [place] [address] Care Team Providers Care Manager Exchange Name Role Phone Harris Appiah MD Primary Care Provider Kingsley Thomas MD Unavailable [phone] Dragan Payne MD Unavailable [phone] Allergies No known active allergies Medications sertraline [...] (07/23/2019): Added automatically from request for surgery [id number] Sleep apnea in adult 07/23/2019 Overview (07/23/2019): Added automatically from request for surgery [id number] Class 3 severe obesity due t o excess calories with serious comorbidity and body mass index (BMI) of 45.0 to 49.9 in adult 07/23/2019 Overview (07/23/2019): Added automatically from request for surgery [id number] Chronic infection of sinus 10/28/2015 Chronic non-infective otitis externa 10/28/2015 Allergic rhinitis due to house dust mite 015 Allergic rhinitis due to mold 09/30/2015 Stopped smoking 09/30/2015 Hay fever 09/16/2015 Resolved Problems Problem Noted Date Diagnosed Date Resolved Date BMI 45.0-49.9, adult 04/08/2022 024 Surgical History Surgery Date Site/Laterality Comments TONSILLECTOMY [...] on file Legal Sex Female 5:18 AM PILE DRIVER OPERATOR HELPER Gender Identity Female 04/12/2022 3:47 PM CDT [...] Comments Blood Pressure 136/84 12/13/2024 9:50 AM PILE DRIVER OPERATOR HELPER Pulse 79 12/13/2024 9:50 AM PILE DRIVER OPERATOR HELPER Temperature 36.3 C (97.4 F) 12/13/2024 9:50 AM PILE DRIVER OPERATOR HELPER Respiratory Rate 17 01/16/2024 2:24 PM PILE DRIVER OPERATOR HELPER Oxygen Saturation 94% 12/13/2024 9:50 AM PILE DRIVER OPERATOR HELPER Inhaled Oxygen Concentration - - Weight 123.8 kg (273 lb) 12/13/2024 9:50 AM PILE DRIVER OPERATOR HELPER Height 165.1 cm (5' 5) 12/13/2024 9:50 AM PILE DRIVER OPERATOR HELPER Body Mass Index 45.43 12/13/2024 9:50 AM PILE DRIVER OPERATOR HELPER Plan of Treatment Health Maintenance Due Date Last Done Comments Albumin Creatinine Ratio, Urine 1964 Breast Cancer Screening-Mammogram 1964 Colon Cancer Screening-Colonoscopy 1964 Depression Screening 1964 Dilated Eye Exam 1964 Foot Exam 1964 Hepatitis B Screening 1982 Regular Well Visit/Exam 18-64 1982 Pneumococcal vaccine <65 (1 of 2 - PCV) 1983 Covid-19 Vaccine ( season) 2024 11/15/2021, 02/19/2021, 01/29/2021 Hemoglobin A1C 06/12/2025 12/13/2024, 11/27, 04/08/2022 Influenza Vaccine (Season Ended) 2025 09/02/20 20, 01/27/2020 Lipid Panel 12/13/2025 12/13/2024, 11/27, 04/08/2022 eGFR 12/13/2025 12/13/2024, 11/27, 04/08/2022 DTaP/Tdap/Td Vaccine (2 - Td or Tdap) 01/26/203012/2019 Zoster Vaccine Completed 11/03/2020, 09/02/2020 Hepatitis C Screening Completed 04/08/2022 Medical Devices Implanted Type Area Narcotics Detective Device Identifier Shelf Expiration Date Model / Serial / Lot Knee Replacement Knee Procedures Procedure Name Priority Date/Time Associated Diagnosis Comments EGFR Routine 12/13/2024 11:29 AM PILE DRIVER OPERATOR HELPER Type 2 diabetes mellitus without complication, without long-term current use of insulin (HCC) HEMOGLOBIN A1C Routine 12/13/2024 11:29 AM PILE DRIVER OPERATOR HELPER Type 2 diabetes mellitus without complication, without long-term current use of insulin (HCC) LIPID PANEL Routine 12/13/2024 11:29 AM PILE DRIVER OPERATOR HELPER Type 2 diabetes mellitus without complication, without long-term current use of insulin (HCC) HEPATITIS C ANTIBODY Routine 04/08/2022 10:53 AM CDT Hepatic steatosis from Last 3 Months or Most Recently Relevant to Health Maintenance Results * eGFR (12/13/2024 11:29 AM PILE DRIVER OPERATOR HELPER) eGFR 87 >=60 mL/min/1. 73 m2 Comment: [...] reviewed 2021. Blood 12/13/2024 11:2 9 AM PILE DRIVER OPERATOR HELPER 12/13/2024 2:14 PM PILE DRIVER OPERATOR HELPER Zackary King MD LAB BLOOD ORDERABLES Fin al Result Performing Organization Address [facility] de Phone Number [facility] [place] [address] * (ABNORMAL) Hemoglobin A1c (12/13/2024 11:29 AM PILE DRIVER OPERATOR HELPER) Hgb A1C 6.3(H) 4.0 - 5.6 % Estimated Average Glucose 134 mg/dL [facility] Comment: The ADA recommends reporting an estimated Average Glucose (eAG) with all Hemoglobin A1c results using the equation derived from a study of 507 normal and diabetic adults. Minority populations were underrepresented and children were not included. (Diabetes Care 2020; 43(S1): S66-S76). The eAG is not equivalent to a fasting glucose. Blood 12/13/2024 11:2 9 AM PILE DRIVER OPERATOR HELPER 12/13/2024 1:50 PM PILE DRIVER OPERATOR HELPER Zackary King MD LAB BLOOD ORDERABLES Fin al Result Performing Organization Address [facility] de Phone Number [facility] [address] * (ABNORMAL) Lipid panel (12/13/2024 11:29 AM PILE DRIVER OPERATOR HELPER) Cholesterol 161 30 - 199 mg/dL Comment: [...] revised on 2018. Triglycerides 151(H) <=149 mg/dL [facility] Comment: Interpretive Data Ages < or = [...] revised on 2018. HDL 42 >=40 mg/dL [facility] Comment: Interpretive Data Ages < or = [...] on 2018. LDL, calculated 92 <=129 mg/dL [facility] Comment: Interpretive Data Ages < or = [...] NCEP Expert Panel. Circulation 2004;110:227 3. Kaz Baez al. JERI Cardiol. 2019March 27;5(5):540-548. doi: 10.1001/jamacardio.2020.0013 Current Interpretive Data was last revised on 2024. Non-HDL Cholesterol 119 mg/dL [facility] Comment: Interpretive Data Ages < or = [...] last revised on 2018. Chol/HDL ratio 4 [facility] Blood 12/13/2024 11:2 9 AM PILE DRIVER OPERATOR HELPER 12/13/2024 1:53 PM PILE DRIVER OPERATOR HELPER Zackary King MD LAB BLOOD ORDERABLES Fin al Result Performing Organization Address City/[facility]/ZIP Co de Phone Number [facility] Department [place] [address] * Hepatitis C antibody (04/08/2022 10:53 AM CDT) Pathologist [facility] Hep C Ab Nonreactive Nonreactive [facility] Comment:Antibodies to HCV no t detected. Does NOT exclude the possibility of recent exposure to HCV. Blood 04/08/2022 10:5 3 AM CDT 04/08/2022 1:41 PM CDT Zackary King MD LAB MICROBIOLOGY - GENER AL ORDERABLES Edited Result - Final Performing Organization Address [facility] [[email or web address]] Co de Phone Number [facility] Department [place] [address] from Last 3 Months or Most Recently Relevant to Health Maintenance Insurance [facility] Address: [address] [place] [address] [facility] HMO Advance Directives For more information, please contact: [phone] * Full Code (Latest Code Status on File) Date Activated Date Inactivated Comments 01/16/2024 11:06 AM 01/16/2024 6:41 PM * Full Code Date Activated Date Inactivated Comments 08/22/2019 1:20 PM 08/23/2019 3:05 PM Care Teams Manager Exchange Relationship Specialty Start Date End Date Harris Appiah MD PCP - General Family Medicine 07/09/19 Kingsley Thomas MD [address] [address] Referring Physician Obstetrics and Gynecology 07/09/19 Dragan Payne MD [address] [address] Consulting Physician Gynecologic Oncology 09/09/19
--- OUTSIDE RECORDS SUMMARY | 2025-06-13 00:19 | XMS_ITS | Continuity of Care Document ---
Author Organization [facility] Address [address] [place] [address] [address] [place] [address] Phone Care Team Providers Care Scientist/Engineer Name Role Phone Hernandez PT,MPT,ATC, Leonel Unavailable Unavai lable Procedures Procedure Date Therapeutic Activities Neuromuscular Re-Ed Therapeutic Exercise Therapeutic Activities Neuromuscular Re-Ed Therapeutic Exercise Therapeutic Activities Neuromuscular Re-Ed Therapeutic Exercise Dry Needling 1-2 muscles Doc neg elder mal no plan PT Evaluation Moderate Complexity Therapeutic Activities Neuromuscular Re-Ed Hot or Cold Pack Doc neg elder mal no plan Identified as not an unhealthy alcohol u ser Not identified as unhealthy alcohol via screening OT Re-Evaluation Therapeutic Activities Neuromuscular Re-Ed Therapeutic Exercise Hot or Cold Pack Therapeutic Activities Neuromuscular Re-Ed Therapeutic Exercise Hot or Cold Pack Therapeutic Activities Neuromuscular Re-Ed Therapeutic Exercise Hot or Cold Pack Therapeutic Activities Neuromuscular Re-Ed Therapeutic Exercise Hot or Cold Pack Therapeutic Activities Neuromuscular Re-Ed Therapeutic Exercise Hot or Cold Pack Therapeutic Activities Neuromuscular Re-Ed Therapeutic Exercise Hot or Cold Pack Therapeutic Activities Neuromuscular Re-Ed Therapeutic Exercise Hot or Cold Pack Therapeutic Activities Neuromuscular Re-Ed Therapeutic Exercise Hot or Cold Pack Therapeutic Activities Neuromuscular Re-Ed Therapeutic Exercise Hot or Cold Pack Therapeutic Activities Therapeutic Exercise Neuromuscular Re-Ed Hot or Cold Pack Doc neg elder mal no plan Identified as not an unhealthy alcohol u ser Not identified as unhealthy alcohol via screening OT Evaluation Low Complexity Therapeutic Activities Neuromuscular Re-Ed Therapeutic Exercise Hot or Cold Pack Doc neg elder mal no plan PT Re-evaluation Therapeutic Activities Doc neg elder mal no plan PT Evaluation Moderate Complexity Therapeutic Activities Canalith Repositioning Procedure 2023 PT RE-EVALUATION THERAPEUTIC EXERCISES NEUROMUSCULAR RE-ED MANUAL THERAPY FUNC ACTIVITY HOT/COLD PACK ELECTRIC STIMULATION UNATT THERAPEUTIC EXERCISES NEUROMUSCULAR RE-ED MANUAL THERAPY FUNC ACTIVITY HOT/COLD PACK ELECTRIC STIMULATION UNATT THERAPEUTIC EXERCISES NEUROMUSCULAR RE-ED MANUAL THERAPY FUNC ACTIVITY HOT/COLD PACK ELECTRIC STIMULATION UNATT THERAPEUTIC EXERCISES NEUROMUSCULAR RE-ED MANUAL THERAPY FUNC ACTIVITY HOT/COLD PACK ELECTRIC STIMULATION UNATT THERAPEUTIC EXERCISES NEUROMUSCULAR RE-ED MANUAL THERAPY FUNC ACTIVITY HOT/COLD PACK ELECTRIC STIMULATION UNATT THERAPEUTIC EXERCISES NEUROMUSCULAR RE-ED MANUAL THERAPY FUNC ACTIVITY HOT/COLD PACK ELECTRIC STIMULATION UNATT THERAPEUTIC EXERCISES NEUROMUSCULAR RE-ED MANUAL THERAPY FUNC ACTIVITY HOT/COLD PACK ELECTRIC STIMULATION UNATT THERAPEUTIC EXERCISES NEUROMUSCULAR RE-ED MANUAL THERAPY FUNC ACTIVITY HOT/COLD PACK ELECTRIC STIMULATION UNATT THERAPEUTIC EXERCISES NEUROMUSCULAR RE-ED MANUAL THERAPY FUNC ACTIVITY HOT/COLD PACK ELECTRIC STIMULATION UNATT THERAPEUTIC EXERCISES NEUROMUSCULAR RE-ED MANUAL THERAPY FUNC ACTIVITY HOT/COLD PACK ELECTRIC STIMULATION UNATT THERAPEUTIC EXERCISES NEUROMUSCULAR RE-ED MANUAL THERAPY FUNC ACTIVITY HOT/COLD PACK ELECTRIC STIMULATION UNATT PT RE-EVALUATION THERAPEUTIC EXERCISES NEUROMUSCULAR RE-ED MANUAL THERAPY FUNC ACTIVITY HOT/COLD PACK ELECTRIC STIMULATION UNATT THERAPEUTIC EXERCISES NEUROMUSCULAR RE-ED MANUAL THERAPY FUNC ACTIVITY HOT/COLD PACK ELECTRIC STIMULATION UNATT THERAPEUTIC EXERCISES NEUROMUSCULAR RE-ED MANUAL THERAPY FUNC ACTIVITY HOT/COLD PACK ELECTRIC STIMULATION UNATT THERAPEUTIC EXERCISES NEUROMUSCULAR RE-ED MANUAL THERAPY FUNC ACTIVITY HOT/COLD PACK ELECTRIC STIMULATION UNATT THERAPEUTIC EXERCISES NEUROMUSCULAR RE-ED MANUAL THERAPY FUNC ACTIVITY HOT/COLD PACK ELECTRIC STIMULATION UNATT PT EVALUATION THERAPEUTIC EXERCISES MANUAL THERAPY ELECTRIC STIMULATION UNATT Advance Directives Directive Yes / No Effective Date File Name No Information Encounters Encounter Description Practice Location Reason(s) For Visit Diagnoses Date Provider Providers Copied on Encounter [facility], [place], [place], [id number], tel:[phone] [place] No Information 5 David Castaneda , [place], [place]. [facility], [place], [place], [address], tel:[phone] [place] No Information 5 Aviva Stone. . Referring Provider: Ladan Kumar, [address] , [place], [address]. tel:[phone] [facility], [place], [place], [address], [place] tel:[phone] [place] No Information 5 Aviva Stone. . Referring Provider: Ladan Kumar, [address], [place], [address]. tel:[phone] [place] [address], [address], [place], [place], [address], [place] tel:[phone] [place] No Information 5 David Peter , [place], [place]. Referring Provider: Ladan Kumar, [address], [place], [address]. tel:[phone] [place] [address] [address], [place], [place], [address], [place] tel:[phone] [place] No Information 5 David Peter , [place], [place]. Referring Provider: Ladan Kumar [address], [place], [address]. tel:[phone] [place] [address], [address], [place], [place], [address], [place] tel:[phone] [place] No Information 5 Miller Ashwini. . Referring Provider: Amparo Lujan [facility] [address], [place], [address]. tel:[phone] [place] [address] [facility] [address], [place], [place], [address], [place] tel:[phone] [place] No Information Jan-2 5 Miller Ashwini. . Referring Provider: Amparo Lujan [facility] [address], [place], [address]. tel:[phone] [place] [address] [facility] [address], [place], [place], [address], [place] tel:[phone] [place] No Information Jan- 5 Miller Ashwini. . Referring Provider: Amparo Lujan [facility] [address], [place], [address]. tel:[phone] [place] [address] [address], [place], [place], [address], [place] tel:[phone] [place] No Information Mar-1 7- 5 Miller Ashwini. . Referring Provider: Amparo Lujan [facility] [address], [place], [address]. tel:[phone] [place] [address] [address], [place], [place], [address], [place] tel:[phone] [place] No Information Mar-1 0-202 5 Miller Ashwini. . Referring Provider: Amparo Lujan [facility] [address], [place], [address]. tel:[phone] [place] [address] [facility] [address], [place], [place], [address], [place] tel:[phone] [place] No Information Mar-0 5-202 5 Miller Ashwini. . Referring Provider: Amparo Lujan [facility] [address], [place], [address]. tel:[phone] [place] [address] [facility] [address], [place], [place], [address], [place] tel:[phone] [place] No Information Mar-0 3-202 5 Miller Sahwini. . Referring Provider: Amparo Lujan [facility] [address], [place], [address]. tel:[phone] [place] [address] [address], [place], [place], [address], [place] tel:[phone] [place] No Information Dec-2 7- 5 Miller Ashwini. . Referring Provider: Amparo Lujan [facility] [address], [place], [address]. tel:[phone] [place] [address], [place], [place], [address], [place] tel:[phone] [place] No Information b-2 5- 5 Miller Ashwini. . Referring Provider: Dillon Pineda, [address] [facility] [address], [place], [address]. tel:[phone] [place] [address] [address], [place], [place], [address], [place] tel:[phone] [place] No Information b-2 0- 5 Miller Ashwini. . Referring Provider: Dillon Pineda, [address] [facility] [address], [place], [address]. tel:[phone] [place] [address] [address], [place], [place], [address], [place] tel:[phone] [place] No Information 5 Miller Ashwini. . Referring Provider: Dillon Pineda, [address] [facility] [address], [place], [address]. tel:[phone] [place] [address] [address], [place], [place], [address], [place] tel:[phone] [place] No Information Dec-1 2- 4 [place], [place], [place]. Referring Provider: Shemar Baxter, [address] [place] [address], [place], [address]. tel:[phone] [place] [address] [place], [place] [address], [place], [place], [address], [place] tel:[phone] [place] No Information Dec-0 9- 4 David CastanedaMARCE[place], [place], [place]. Referring Provider: Shemar Baxter, [address] [place] [address], [place], [address]. tel:[phone] [place] [address] [facility] [address], [place], [place], [address], [place] tel:[phone] [place] No Information Sep-0 5- 4 Tesfaye Mclean. [address] [facility], [address], [place], [place], [facility], . tel:[phone] [facility], [place], [place], [address], [place] tel:[phone] [place] No Information Sep-0 2-201 4 Carlin Caridad. [address] [place] [address], [address], [place], [address], [place]. tel:[phone] [facility], [address], [place], [place], [address], [place] tel:[phone] [place] No Information Jun-2 8- 4 Carlin Caridad. [address] [place] [address], [address], [place], [address], [place]. tel:[phone] [facility] [address], [place], [place], [address], [place] tel:[phone] [place] No Information Jun-2 - 4 Carlin Caridad. [address] [place] [address], [address], [place], [address], [place]. tel:[phone] [facility] [address], [place], [place], [address], [place] tel:[phone] [place] No Information Jun-2 -201 4 Carlin Caridad. [address] [place] [address], [address], [place], [address], [place]. tel:[phone] [facility] [address], [place], [place], [address], [place] tel:[phone] [place] No Information 4 Carlin Caridad. [address] [place] [address], [address], [place], [address], [place]. tel:[phone] [facility] [address], [place], [place], [address], [place] tel:[phone] [place] No Information Jun- 4 Carlin Caridad. [address] [place] [address], [address], [place], [address], [place]. tel:[phone] [facility] [address], [place], [place], [address], [place] tel:[phone] [place] No Information Aug-1 3-201 4 Carlin Caridad. [address] [place] [address], [address], [place], [address], [place]. tel:[phone], [place], [place], [address], [place] tel:[phone] [place] No Information Jun-1 1-201 4 Carlin Caridad. [address] [place] [address], [address], [place], [address], [place]. tel:[phone] [place] [address] [address], [place], [place], [address], [place] tel:[phone] [place] No Information Jun-0 8-201 4 Carlin Caridad. [address] [place] [address], [address], [place], [address], [place]. tel:[phone] [place] [address] [address], [place], [place], [address], [place] tel:[phone] [place] No Information Jun-0 6-201 4 Carlin Caridad. [address] [place] [address], [address], [place], [address], [place]. tel:[phone], [place], [place], [address], [place] tel:[phone] [place] No Information Jun-0 4-201 4 Carlin Caridad. [address] [place] [address], [address], [place], [address], [place]. tel:[phone], [place], [place], [address], [place] tel:[phone] [place] No Information Jun-0 1-201 4 Carlin Caridad. [address] [place] [address], [address], [place], [address], [place]. tel:[phone], [place], [place], [address], [place] tel:[phone] [place] No Information 0-201 4 Carlin Caridad. [address] [place] [address], [address], [place], [place], [facility], . tel:[phone] [facility] [address] [place] [address] [address], [place], [place], [address], tel:[phone] [place] No Information 4 Carlin Caridad. [address] [place] [address], [address], [place], [place], [facility], . tel:[phone], [place], [place], [address], tel:[phone] [place] No Information 4 Muehl Parul. [address] [place] [address], [address], [place], [place], [facility], . tel:[phone], [place], [place], [address], tel:[phone] [place] Pain in joint involving lower leg 4 Carlin Caridad. [address] [place] [address], [address], [place], [place], [facility], [place]. tel:[phone] Family History Family Member Type Diagnosis Age At Onset No Information Payers Payer name Insurance type Covered constitution party ID Ced hutchinson(s) Mary [id number] Social History Type Description Quantity Date Captured Comments Sex Female Smoking Status No Information Chief Complaint And Reason For Visit No Information Reason For Referral Reason For Referral No Information History Of Present Illness Encounter Date Complaint History Of Prese nt Illness No Information Functional Status Date Functional Assessmen t No Information Instructions Date Instruction Additional Infor mation No Information Assessments Type Assessment Date No Information Patient Care Teams Name Effective Dates (start - stop) Status Members No Information
[2025-06-13 07:45] VITALS: BP 146/75; PULSE 76; RESP 14; TEMP 36.6; O2SAT 99; BMI 41.8
--- NOTE | 2025-06-13 07:47 | P.PNAN_ITS ---
Anes - Initial Pre Proc Eval Procedure: Operation Date: 06/13/25 09:00 Proposed Procedures p Screening Colonoscopy - Cipriano Madison MD Date/Time: 06/13/25 07:47 Surgeon: Cipriano Madison MD Pre Op Diagnosis: Encounter for screening for malignant neoplasm of Patient Data Age: 59 Gender: F Height: 1.65 m Weight: 118 kg Allergies Allergy/AdvReac Type Severity Reaction Status Date / Time No Known Allergies Allergy Verified 06/13/25 07:51 Home Medications ?Medication ?Instructions ?Recorded ?Confirmed ?Type cholecalciferol (vitamin D3) 125 125 mcg PO DAILY 01/23/23 06/13/25 History mcg (5,000 unit) capsule flaxseed oil 1,000 mg capsule 1,000 mg PO DAILY 01/23/23 06/13/25 History ([place]-3 Flaxseed Oil) multivitamin 1 tablet PO DAILY 01/23/23 06/13/25 History vitamin B complex 1 tablet PO DAILY 01/23/23 06/13/25 History sertraline 100 mg tablet 200 mg (2 x 100 mg) PO DAILY #180 01/22/25 06/13/25 Rx tabs fluticasone propionate 93 1 spray intranasal DAILY 02/10/25 06/13/25 History mcg/actuation breath activated aerosol (Xhance) semaglutide 7 mg tablet (Rybelsus) 14 mg PO DAILY 02/10/25 06/13/25 History atorvastatin 40 mg tablet 40 mg PO DAILY #90 tabs 02/17/25 06/13/25 Rx metformin 500 mg tablet 500 mg PO BID E11.9 #180 tabs 02/17/25 06/13/25 Rx cyclobenzaprine 5 mg tablet 5 mg PO TID PRN muscle spasm #30 03/26/25 06/02/25 Rx tabs Patient hx anesthesia problems: none Family hx anesthesia problems: none Results Review: All pre-operative results and documents have been reviewed as part of the pre- operative evaluation. [facility] Past Medical History Medical History (Updated 06/12/25 @ 13:44 by Tayo Blandon DO) SALOME (obstructive sleep apnea) Hyperlipidemia Muscle spasm Radiculopathy Disequilibrium Abdominal pain Eustachian tube dysfunction Sinusitis Chest tightness Elevated blood pressure reading Labral tear of shoulder Injury of left upper arm Left elbow pain Left shoulder pain Trigger finger, right ring finger Diabetes Arthritis Allergies History of endometrial cancer delivery delivered BMI 40.0-44.9, adult New onset type 2 diabetes mellitus Morbid obesity Surgical History Surgical History History of hysterectomy 2019 History of sinus surgery 2019 History of total right knee replacement 2014 History of hernia repair 2008 H/O LEEP 1989 History of appendectomy 1976 History of tonsillectomy 1968 Family History Family History Father Family history of diabetes mellitus in first degree relative Hypertension Cerebrovascular accident Family history of heart disease in male family member before age 55 Patient's father is Alcoholism Depression Heart disease Thyroid disorder Mother Family history of malignant neoplasm of breast in first degree relative Alcoholism Cancer Sibling Family history of osteoporosis Hypertension Depression Grandparent Family history of heart disease in male family member before age 55 Diabetes mellitus Cancer Family history of diabetes mellitus in first degree relative Hypertension Depression Cerebrovascular accident Other Depression Other Family history of cardiovascular disease Family history of osteoarthritis Social History Social History Smoking packs per day: 0.75 Smoking cigarettes per day: 15.0 Years smoked: 7 Smoking pack-years: 5.25 Smoking status: Former smoker (quit 15 years ago) Tobacco type: cigarettes Second hand tobacco smoke exposure: Yes Smoking end date: 11/27/09 Alcohol intake: current Substance use: never Substance use type: does not use Do You Feel Safe in your Home?: Yes Lack of Transportation: No Lack of Food: Never True Current Housing: I Have Housing Concerned About Future Housing: No Difficulty Paying Gas/Electric Bills: No Difficulty Paying for Meds: No Currently Unemployed: No Education: Associate Degree Difficulty w/ Childcare or Family Care: No Living arrangements: with family Occupation/Education: unemployed Additional occupation/education comments: Homemaker Gender identity (if verbalized by the patient): Female Sexual Orientation (if Verbalized by the Patient): Straight or Heterosexual Spiritual care concerns: No Agree to blood products: Yes Anes - Eval Final PreProcedure Day of Procedure 06/13/25 07:47 Patient weight: morbidly obese Heart: regular rate and rhythm Lungs: clear to auscultation Airway: Mallampati scale class II Neurological: alert and oriented Last oral intake: >/= 8 hours ASA classification: III Emergent: no Anesthetic plan: proceed Anesthesia type and monitoring: general GIVS and standard monitoring Results Review: All pre-operative results and documents have been reviewed as part of the pre- operative evaluation. Informed Consent: The patient's anesthetic plan and its attendant risks and benefits were discussed with the patient/family/POA. Questions were solicited and answers provided to the satisfaction of the patient/family/POA.
[2025-06-13] MEDS: LACTATED RINGERS 1,000 ML 150 ML IV CONT (08:01)
--- NOTE | 2025-06-13 08:41 | PM.IMHP ---
H&P: HPI History of Present Illness Date/Time: 06/13/25 08:41 Chief Complaint: Screening colonoscopy Narrative: This is the patient's 2nd colonoscopy. There are no GI symptoms and there is no family history of colorectal cancer. Review of Systems Review of Systems: All systems reviewed & are unremarkable except as noted in HPI and below PMFSH Past Medical History Medical History (Updated 06/12/25 @ 13:44 by Tayo Blandon, DO) SALOME (obstructive sleep apnea) Hyperlipidemia Muscle spasm Radiculopathy Disequilibrium Abdominal pain Eustachian tube dysfunction Sinusitis Chest tightness Elevated blood pressure reading Labral tear of shoulder Injury of left upper arm Left elbow pain Left shoulder pain Trigger finger, right ring finger Diabetes Arthritis Allergies History of endometrial cancer delivery delivered BMI 40.0-44.9, adult New onset type 2 diabetes mellitus Morbid obesity Surgical History Surgical History History of hysterectomy 2019 History of sinus surgery 2019 History of total right knee replacement 2013 History of hernia repair 2008 H/O LEEP 1989 History of appendectomy 1976 History of tonsillectomy 1968 Family History Family History Father Family history of diabetes mellitus in first degree relative Hypertension Cerebrovascular accident Family history of heart disease in male family member before age 55 Patient's father is Alcoholism Depression Heart disease Thyroid disorder Mother Family history of malignant neoplasm of breast in first degree relative Alcoholism Cancer Sibling Family history of osteoporosis Hypertension Depression Grandparent Family history of heart disease in male family member before age 55 Diabetes mellitus Cancer Family history of diabetes mellitus in first degree relative Hypertension Depression Cerebrovascular accident Other Depression Other Family history of cardiovascular disease Family history of osteoarthritis Social History Social History Smoking packs per day: 0.75 Smoking cigarettes per day: 15.0 Years smoked: 7 Smoking pack-years: 5.25 Smoking status: Former smoker (quit 15 years ago) Tobacco type: cigarettes Second hand tobacco smoke exposure: Yes Smoking end date: 11/27/09 Alcohol intake: current Substance use: never Substance use type: does not use Do You Feel Safe in your Home?: Yes Lack of Transportation: No Lack of Food: Never True Current Housing: I Have Housing Concerned About Future Housing: No Difficulty Paying Gas/Electric Bills: No Difficulty Paying for Meds: No Currently Unemployed: No Education: Associate Degree Difficulty w/ Childcare or Family Care: No Living arrangements: with family Occupation/Education: unemployed Additional occupation/education comments: Homemaker Gender identity (if verbalized by the patient): Female Sexual Orientation (if Verbalized by the Patient): Straight or Heterosexual Spiritual care concerns: No Agree to blood products: Yes Meds Home Medications and Allergies Home Medications ?Medication ?Instructions ?Recorded ?Confirmed ?Type cholecalciferol (vitamin D3) 125 125 mcg PO DAILY 01/23/23 06/13/25 History mcg (5,000 unit) capsule flaxseed oil 1,000 mg capsule 1,000 mg PO DAILY 01/23/23 06/13/25 History ([place]-3 Flaxseed Oil) multivitamin 1 tablet PO DAILY 01/23/23 06/13/25 History vitamin B complex 1 tablet PO DAILY 01/23/23 06/13/25 History sertraline 100 mg tablet 200 mg (2 x 100 mg) PO DAILY #180 01/22/25 06/13/25 Rx tabs fluticasone propionate 93 1 spray intranasal DAILY 02/10/25 06/13/25 History mcg/actuation breath activated aerosol (Xhance) semaglutide 7 mg tablet (Rybelsus) 14 mg PO DAILY 02/10/25 06/13/25 History atorvastatin 40 mg tablet 40 mg PO DAILY #90 tabs 02/17/25 06/13/25 Rx metformin 500 mg tablet 500 mg PO BID E11.9 #180 tabs 02/17/25 06/13/25 Rx cyclobenzaprine 5 mg tablet 5 mg PO TID PRN muscle spasm #30 03/26/25 06/02/25 Rx tabs Allergies Allergy/AdvReac Type Severity Reaction Status Date / Time No Known Allergies Allergy Verified 06/13/25 07:51 Vital Signs Vital Signs - 24 hr 06/13/25 07:45 Temperature 97.9 F Pulse Rate 76 Respiratory Rate 14 Blood Pressure 146/75 H Pulse Oximetry 99 Oxygen Delivery Room Air Exam Const: General: cooperative and healthy appearing Resp: Effort & Inspection: normal respiratory effort and able to speak in complete sentences Auscultation: clear to auscultation bilaterally Cardio: Rate: regular rate Rhythm: regular rhythm GI: Inspection: normal to inspection GI Palp: No No hepatosplenomegaly present Auscultation: normal bowel sounds Rectal Exam: deferred Skin: General skin exam: normal color Psych: Appearance: grossly normal Mental Status: mental status grossly normal Assessment and Plan Assessment and plan (1) Screen for colon cancer: Code(s): Z12.11 - Encounter for screening for malignant neoplasm of colon Status: Acute Assessment and Plan: The patient is deemed a good candidate for the procedure. Consent signed. Will proceed.
[2025-06-13 09:11] VITALS: BP 99/67; PULSE 84; RESP 20; O2SAT 99
[2025-06-13 09:21] VITALS: BP 122/75; PULSE 80; RESP 19; O2SAT 99
[2025-06-13 09:31] VITALS: BP 148/83; PULSE 75; RESP 19; O2SAT 98
== END 2025-06-13 09:43 | disposition home or self-care (01) ==
PROVIDERS: PCP Family Medicine; Referring Provider Nurse Practitioner Family; Visit Provider Internal Medicine Gastroenterology
PROC: 0DJD8ZZ Inspection of Lower Intestinal Tract, Via Natural or Artificial Opening Endoscopic (ICD-10-PCS; CPT 45378; principal; 2025-06-13 09:00)
DX: Z12.11 Encounter for screening for malignant neoplasm of colon (principal); K57.30 Diverticulosis of large intestine without perforation or abscess without bleeding; E11.9 Type 2 diabetes mellitus without complications; Z87.891 Personal history of nicotine dependence; E66.01 Morbid (severe) obesity due to excess calories; Z68.41 Body mass index [BMI] 40.0-44.9, adult
CPT/HCPCS: 45378; 82948; J2003; J2704; J7120